=== PATIENT | male | born 1995 | race Caucasian/White ===

== ENCOUNTER 2016-09-06 13:28 | Outpatient (RCR) | payer OTHER | END 2016-12-05 | LOC: WSOH | DX: M54.5 Low back pain (principal) ==

== ENCOUNTER → 2018-11-15 | Outpatient (REF) | LOC: ZLAB.WCH 20:38 | DX: Z01.89 Encounter for other specified special examinations (principal) ==

== ENCOUNTER 2019-12-16 20:54 | Emergency (ER) | payer OTHER ==
[~2019-12-16] VITALS: Ht 190.5 cm; Wt 97.7 kg
[2019-12-16 21:00] VITALS: TEMP 97.7
[2019-12-16 21:40] LABS: BASO % 0.3 % (0.0-2.0); EOS # 0.2 (0.0-0.7); EOS % 1.6 % (0-4.0); GRAN # 6.9 (1.4-6.5); GRAN % 59.7 % (42.2-75.2); HEMATOCRIT 42.7 % (42.0-52.0); HEMOGLOBIN 14.8 g/dl (13.5-18.0); LYMPH # 3.8 (1.2-3.4); LYMPH % 32.4 % (20.0-51.0); MEAN CELL VOLUME 87 fl (80.0-100.0); MEAN CORPUSCULAR HEMOGLOBIN 30 pg (27.0-31.0); MEAN CORPUSCULAR HGB CONC 35 g/dl (33.0-37.0); MEAN PLATELET VOLUME 9.3 fl (7.4-10.4); MONO # 0.6 (0.1-0.6); MONO % 5.5 % (1.7-9.3); PLATELET COUNT 260 K/mm3 (130-400); RED BLOOD COUNT 4.93 M/mm3 (4.20-5.60); REDCELL DISTRIBUTION WIDTH-CV 12.1 % (11.5-14.5)
[2019-12-16 21:47] LABS: PROTHROMBIN TIME 12.2 SECONDS (9.7-12.8)
[2019-12-16 21:50] LABS: PARTIAL THROMBOPLASTIN TIME 38.2 SECONDS (26.0-37.0)
[2019-12-16 21:54] LABS: ALANINE AMINOTRANSFERASE 124 U/L (21-72); ALBUMIN 4.8 gm/dL (3.5-5.0); ALKALINE PHOSPHATASE 64 U/L (50-136); ANION GAP 11 mmol/L (7-16); AST,SGOT 80 U/L (15-37); BLOOD UREA NITROGEN 16 mg/dL (9-20); CALCIUM 9.6 mg/dL (8.4-10.2); CARBON DIOXIDE 27 mmol/L (22-30); CHLORIDE 102 mmol/L (98-107); CREATININE, serum 0.79 (0.66-1.25); GLUCOSE 104 mg/dL (74-106); POTASSIUM 3.6 mmol/L (3.4-5.0); SODIUM 140 mmol/L (137-145); TOTAL PROTEIN 7.6 gm/dL (6.4-8.2)
[2019-12-16 21:55] LABS: C-REACTIVE PROTEIN < 0.5 mg/dL (0.0-0.9)
[2019-12-16 22:11] LABS: TROPONIN-I < 0.012 ng/mL (0.000-0.035)
[2019-12-16] MEDS ORDERED: PRILOSEC 20MG20 MG PO (22:39)
[2019-12-16 22:55] VITALS: BP 128/68; PULSE 53
== END 2019-12-16 22:55 | disposition home or self-care (01) ==
LOC: COL.ER 20:54
PROVIDERS: Family Medicine
DX: K21.9 Gastro-esophageal reflux disease without esophagitis (principal); I10 Essential (primary) hypertension
CPT/HCPCS: C9113; J1885

== ENCOUNTER 2020-04-01 06:25 | Emergency (ER) | payer SELFPAY ==
[~2020-04-01] VITALS: Ht 190.5 cm; Wt 100.9 kg
[~2020-04-01 06:25] MED LIST: PRILOSEC 20MG20 MG PO
[2020-04-01 06:30] VITALS: BP 153/85; PULSE 64; TEMP 98
[2020-04-01] MEDS ORDERED: PRINIVIL20 MG PO (06:32)
[2020-04-01] MEDS ORDERED: NAPROSYN500 MG (06:33)
[2020-04-01] MEDS ORDERED: PRILOSEC 20MG20 MG PO (06:54)
[2020-04-01] MEDS ORDERED: PEPCID 20MG TAB20 MG PO (07:15)
[2020-04-01] MEDS ORDERED: ZOFRAN ODT4 MG SL (07:26)
== END 2020-04-01 07:51 | disposition home or self-care (01) ==
LOC: COL.ER 06:25
DX: K27.9 Peptic ulcer, site unspecified, unspecified as acute or chronic, without hemorrhage or perforation (principal); K21.9 Gastro-esophageal reflux disease without esophagitis

== ENCOUNTER 2020-07-26 03:52 | Emergency (ER) | payer OTHER ==
[~2020-07-26] VITALS: Ht 190.5 cm; Wt 100.0 kg
[~2020-07-26 03:52] MED LIST changes: +NAPROSYN500 MG; +PEPCID 20MG TAB20 MG PO; +PRINIVIL20 MG PO; +ZOFRAN ODT4 MG SL
[2020-07-26 03:57] VITALS: TEMP 97.8
[2020-07-26 04:42] LABS: COLLECTION METHOD CLEAN CATCH
[2020-07-26 04:46] LABS: BASO % 0.5 % (0.0-2.0); EOS # 0.1 (0.0-0.7); EOS % 1.5 % (0-4.0); GRAN # 3.2 (1.4-6.5); GRAN % 49.4 % (42.2-75.2); HEMATOCRIT 45.9 % (42.0-52.0); HEMOGLOBIN 15.7 g/dl (13.5-18.0); LYMPH # 2.6 (1.2-3.4); LYMPH % 39.4 % (20.0-51.0); MEAN CELL VOLUME 84 fl (80.0-100.0); MEAN CORPUSCULAR HEMOGLOBIN 29 pg (27.0-31.0); MEAN CORPUSCULAR HGB CONC 34 g/dl (33.0-37.0); MONO # 0.6 (0.1-0.6); MONO % 8.9 % (1.7-9.3); PLATELET COUNT 228 K/mm3 (130-400); RED BLOOD COUNT 5.46 M/mm3 (4.20-5.60); REDCELL DISTRIBUTION WIDTH-CV 12.6 % (11.5-14.5)
[2020-07-26 04:50] LABS: MUCOUS Present /lpf; PH 6 (5-8); SQUAMOUS EPITHELIAL 0-2 /hpf; URINE APPEARANCE Clear; URINE BACTERIA None Seen /hpf; URINE BILIRUBIN Negative (NEGATIVE); URINE BLOOD Negative (NEGATIVE); URINE COLOR Yellow; URINE GLUCOSE Negative (NEGATIVE); URINE KETONE Negative (NEGATIVE); URINE LEUKOCYTE ESTERASE Negative (NEGATIVE); URINE NITRATE Negative (NEGATIVE); URINE PROTEIN(semi-quant) Negative (NEGATIVE); URINE RBC None Seen /hpf
[2020-07-26 04:58] LABS: ALBUMIN 4.9 gm/dL (3.5-5.0); ALKALINE PHOSPHATASE 123 U/L (50-136); ANION GAP 9 mmol/L (7-16); AST,SGOT 639 U/L (15-37); BILIRUBIN,TOTAL 4.3 mg/dL (0.0-1.0); BLOOD UREA NITROGEN 9 mg/dL (9-20); CALCIUM 9.8 mg/dL (8.4-10.2); CARBON DIOXIDE 30 mmol/L (22-30); CHLORIDE 101 mmol/L (98-107); CREATININE, serum 0.87 (0.66-1.25); GLUCOSE 99 mg/dL (74-106); LIPASE 48 U/L (23-300); POTASSIUM 3.9 mmol/L (3.4-5.0); SODIUM 140 mmol/L (137-145); TOTAL PROTEIN 7.9 gm/dL (6.4-8.2)
[2020-07-26 04:59] LABS: C-REACTIVE PROTEIN < 0.5 mg/dL (0.0-0.9)
[2020-07-26 05:08] LABS: ALANINE AMINOTRANSFERASE 1033 U/L (4-49); TROPONIN-I < 0.012 ng/mL (0.000-0.035)
[2020-07-26 07:12] LABS: MONOSCREEN NEGATIVE
[2020-07-26] MEDS ORDERED: TOPROL XL 50MG50 MG PO (07:25)
[2020-07-26] MEDS ORDERED: PRIL40 PO (07:25)
[2020-07-26] MEDS ORDERED: ZOFRAN ODT4 MG PO (10:01)
[2020-07-26] MEDS ORDERED: NORCO 325 MG-51 TAB PO (10:01)
[2020-07-26] MEDS ORDERED: AMOXICILLIN 8751 TAB PO (10:01)
[2020-07-26 10:30] VITALS: BP 140/85; PULSE 65
== END 2020-07-26 10:30 | disposition home or self-care (01) ==
LOC: COL.ER 03:52
PROVIDERS: Emergency Medicine
DX: K80.50 Calculus of bile duct without cholangitis or cholecystitis without obstruction (principal); K21.9 Gastro-esophageal reflux disease without esophagitis; J02.9 Acute pharyngitis, unspecified
CPT/HCPCS: C9113; J1885; J2270; J2405; J2543; J7030; Q9967

== ENCOUNTER 2020-07-26 17:22 | Inpatient (IN) | payer OTHER ==
[~2020-07-26] VITALS: Ht 190.5 cm; Wt 99.2 kg
[~2020-07-26 17:22] MED LIST changes: +AMOXICILLIN 8751 TAB PO; +NORCO 325 MG-51 TAB PO; +PRIL40 PO; +TOPROL XL 50MG50 MG PO; +ZOFRAN ODT4 MG PO
[2020-07-26 20:11] VITALS: BP 130/76; PULSE 18; TEMP 98.2
[2020-07-26 20:14] VITALS: BP 130/76; PULSE 55; TEMP 98.2
[2020-07-26 23:14] VITALS: BP 121/70; PULSE 52; TEMP 98
[2020-07-27] VITALS (10 sets, daily range): BP systolic 127–150; BP diastolic 64–80; PULSE 54–67; TEMP 97.2–98.4
[2020-07-27 06:44] LABS: BASO % 0.1 % (0.0-2.0); EOS # 0.1 (0.0-0.7); GRAN # 4.4 (1.4-6.5); GRAN % 63.2 % (42.2-75.2); HEMOGLOBIN 14.4 g/dl (13.5-18.0); LYMPH # 1.8 (1.2-3.4); LYMPH % 25.6 % (20.0-51.0); MEAN CELL VOLUME 85 fl (80.0-100.0); MEAN CORPUSCULAR HEMOGLOBIN 29 pg (27.0-31.0); MEAN CORPUSCULAR HGB CONC 34 g/dl (33.0-37.0); MEAN PLATELET VOLUME 10.3 fl (7.4-10.4); MONO # 0.7 (0.1-0.6); MONO % 9.5 % (1.7-9.3); PLATELET COUNT 216 K/mm3 (130-400); RED BLOOD COUNT 5.06 M/mm3 (4.20-5.60); REDCELL DISTRIBUTION WIDTH-CV 12.7 % (11.5-14.5)
[2020-07-27 07:01] LABS: ALBUMIN 4.2 gm/dL (3.5-5.0); BILIRUBIN,TOTAL 4.5 mg/dL (0.0-1.0); CALCIUM 9.1 mg/dL (8.4-10.2); CREATININE, serum 0.89 (0.66-1.25); POTASSIUM 3.9 mmol/L (3.4-5.0)
[2020-07-28] VITALS (13 sets, daily range): BP systolic 133–163; BP diastolic 67–91; PULSE 52–91; TEMP 97.5–98.8
[2020-07-28 06:48] LABS: BASO % 0.3 % (0.0-2.0); EOS # 0.1 (0.0-0.7); EOS % 1.2 % (0-4.0); GRAN # 3.7 (1.4-6.5); GRAN % 56.6 % (42.2-75.2); HEMATOCRIT 40.7 % (42.0-52.0); HEMOGLOBIN 13.9 g/dl (13.5-18.0); LYMPH # 2.1 (1.2-3.4); LYMPH % 32.6 % (20.0-51.0); MEAN CELL VOLUME 85 fl (80.0-100.0); MEAN CORPUSCULAR HEMOGLOBIN 29 pg (27.0-31.0); MEAN CORPUSCULAR HGB CONC 34 g/dl (33.0-37.0); MEAN PLATELET VOLUME 10.2 fl (7.4-10.4); MONO # 0.6 (0.1-0.6); MONO % 8.8 % (1.7-9.3); PLATELET COUNT 191 K/mm3 (130-400); REDCELL DISTRIBUTION WIDTH-CV 12.6 % (11.5-14.5)
[2020-07-28 06:51] LABS: CREATININE, serum 0.85 (0.66-1.25)
[2020-07-29 03:51] VITALS: BP 144/87; PULSE 61; TEMP 98.3
[2020-07-29 07:13] LABS: BASO % 0.2 % (0.0-2.0); EOS # 0.1 (0.0-0.7); EOS % 0.7 % (0-4.0); GRAN # 6.4 (1.4-6.5); GRAN % 70.8 % (42.2-75.2); LYMPH # 1.7 (1.2-3.4); LYMPH % 18.9 % (20.0-51.0); MEAN CELL VOLUME 85 fl (80.0-100.0); MEAN CORPUSCULAR HEMOGLOBIN 29 pg (27.0-31.0); MEAN CORPUSCULAR HGB CONC 34 g/dl (33.0-37.0); MEAN PLATELET VOLUME 9.9 fl (7.4-10.4); MONO # 0.8 (0.1-0.6); PLATELET COUNT 188 K/mm3 (130-400); RED BLOOD COUNT 4.12 M/mm3 (4.20-5.60); REDCELL DISTRIBUTION WIDTH-CV 12.6 % (11.5-14.5)
[2020-07-29 07:24] LABS: HEMATOCRIT 34.9 % (42.0-52.0)
[2020-07-29 07:35] LABS: ALBUMIN 3.6 gm/dL (3.5-5.0); BILIRUBIN,TOTAL 2.9 mg/dL (0.0-1.0); CALCIUM 8.6 mg/dL (8.4-10.2); CREATININE, serum 0.75 (0.66-1.25); POTASSIUM 3.9 mmol/L (3.4-5.0); TOTAL PROTEIN 6.2 gm/dL (6.4-8.2)
[2020-07-29 08:08] VITALS: BP 154/95; PULSE 88; TEMP 98.2
[2020-07-29] MEDS ORDERED: NORVASC 5MG5 MG/TAB PO (09:03)
[2020-07-29 11:24] VITALS: BP 144/87; PULSE 72; TEMP 98
== END 2020-07-29 12:05 | disposition home or self-care (01) | DRG 419 ==
LOC: COL.ER 17:22 → SURG 17:53
PROVIDERS: Nurse Practitioner Family; Physician Assistant; Student in an Organized Health Care Education/Training Program; Surgery; ADMIT Internal Medicine Pulmonary Disease
PROC: 0FC98ZZ Extirpation of Matter from Common Bile Duct, Via Natural or Artificial Opening Endoscopic (ICD-10-PCS; 2020-07-27)
PROC: BF131ZZ Fluoroscopy of Gallbladder and Bile Ducts using Low Osmolar Contrast (ICD-10-PCS; 2020-07-28)
PROC: 0FT44ZZ Resection of Gallbladder, Percutaneous Endoscopic Approach (ICD-10-PCS; principal; 2020-07-28 08:00)
DX: K80.65 Calculus of gallbladder and bile duct with chronic cholecystitis with obstruction (principal); K21.9 Gastro-esophageal reflux disease without esophagitis; I10 Essential (primary) hypertension; R00.1 Bradycardia, unspecified; K76.0 Fatty (change of) liver, not elsewhere classified
CPT/HCPCS: OP; 99222-AI; 99231-AI; 99232-AI; 99239; C1769; C9113; J1170; J2405; J2543; J2550; J2704; J3010; J7030; J7120; Q9967